=== PATIENT | male | born 1970 | race Hispanic/Latino ===

== ENCOUNTER → 2023-08-12 08:17 | Outpatient (CLI) | payer OTHER, SELFPAY ==
[2023-08-12 09:05] LABS: Add Manual Diff / Slide Review NO; Basophils Absolute Auto 0 /uL (0-100); Basophils Percent Auto 0.4 % (0-2); Eosinophils Absolute Auto 100 /uL (0-450); Eosinophils Percent Auto 1.6 % (2-4); Hematocrit 42.5 % (41-53); Hemoglobin 14.7 g/dL (13.5-17.5); Lymphocytes Absolute Auto 1500 /uL (1100-4500); Lymphocytes Percent Auto 35.7 % (25-40); Mean Corpuscular HGB Conc 34.5 % (30-36); Mean Corpuscular Hemoglobin 31.6 PG (26-34); Mean Corpuscular Volume 91.5 fL (80-100); Monocytes Absolute Auto 200 /uL (0-900); Monocytes Percent Auto 5.8 % (3-14); Neutrophils Absolute Auto 2400 /uL (1500-7000); Neutrophils Percent Auto 56.5 % (50-75); Platelet Count 252 X10^3/uL (150-400); Red Blood Cell Count 4.65 X10^6/uL (4.5-5.9); Red Cell Distribution Width 13.3 % (11.6-14.8); White Blood Cell Count 4.3 X10^3/uL (4.5-11.0)
[2023-08-12 09:16] LABS: Appearance Urine UA CLEAR; Bilirubin Urine UA NEGATIVE (NEGATIVE); Color Urine UA YELLOW; Glucose Urine UA NEGATIVE (Negative); Ketones Urine UA NEGATIVE (NEGATIVE); Leukocyte Esterase Urine UA NEGATIVE (NEGATIVE); Nitrite Urine UA NEGATIVE (Negative); Occult Blood Urine UA NEGATIVE (Negative); Protein Urine UA NEGATIVE (Negative); Urobilinogen Urine UA 0.2 E.U./dL (0.2)
[2023-08-12 09:17] LABS: Hemoglobin A1C% w Est Avg Glu 5.2 % (4.0-6.0)
[2023-08-12 09:23] LABS: Bacteria Urine None Seen; Culture Indicated Urine Cult Not Indicated; RBC Urine None Seen (0-5/HPF); Squamous Epithelial Cell Urine None Seen (0-5/HPF); Urine Volume 10mL (spun); WBC Urine None Seen (0-5/HPF)
[2023-08-12 09:25] LABS: Alanine Aminotransferase 17 IU/L (<50); Albumin 4.1 g/dL (3.5-5.0); Albumin Globulin Ratio 1.4 (1.0-2.8); Alkaline Phosphatase 58 U/L (38-126); Aspartate Aminotransferase 24 IU/L (17-59); BUN Creatinine Ratio 21.4 (6-22); Bilirubin Total 1.3 mg/dL (0.2-1.3); Blood Urea Nitrogen 15 mg/dL (9-20); Calcium 9.3 mg/dL (8.4-10.2); Carbon Dioxide 29 mmol/L (22-32); Chloride 103 mmol/L (98-107); Cholesterol 146 mg/dL (140-199); Estimated Glomerular Filt Rate > 60 mL/min (>60); Glucose 97 mg/dL (70-100); HDL Cholesterol 42 mg/dL (40-60); HEMOLYSIS < 15 (0-50); LDL Cholesterol Calculated 88 mg/dL (<100); Potassium 4.6 mmol/L (3.4-5.1); Sodium 139 mmol/L (137-145); Total Protein 7.1 g/dL (6.3-8.2); Triglycerides 78 mg/dL (35-150)
[2023-08-12 09:51] LABS: Creatinine Urine Random 76.3 mg/dL
[2023-08-12 09:53] LABS: Prostate Specific Antigen Scrn 8.53 ng/mL (0.1-4.0)
[2023-08-12 10:10] LABS: Microalbumin Urine Random < 0.6 mg/dL (0-1.6)
== END ==
PROVIDERS: PCP Family Medicine; Referring Provider Family Medicine; Visit Provider Family Medicine
DX: Z12.5 Encounter for screening for malignant neoplasm of prostate (principal); Z11.59 Encounter for screening for other viral diseases; Z11.4 Encounter for screening for human immunodeficiency virus [HIV]; Z12.11 Encounter for screening for malignant neoplasm of colon; I10 Essential (primary) hypertension; R73.01 Impaired fasting glucose; E78.2 Mixed hyperlipidemia; R10.30 Lower abdominal pain, unspecified
CPT/HCPCS: 36415; 80053; 80061; 81001; 82043; 82570; 83036; 85025; G0103

== ENCOUNTER → 2023-10-05 16:29 | Outpatient (CLI) | payer OTHER, SELFPAY ==
--- NOTE | 2023-10-05 16:32 | DI.MRI.S_ITS ---
PROCEDURE: MR PELVIC PROSTATE PROTOCOL INDICATIONS: Elevated PSA Additional history: PSA 8.53. TECHNIQUE: Coronal HASTE, axial T1 FSE with fat saturation, 3-plane nonbreath-hold T2 FSE. After the administration of contrast, dynamic axial, delayed axial and coronal VIBE or 2-D FLASH with fat saturation through the pelvis. Diffusion weighted imaging and ADC was performed. COMPARISON: None. FINDINGS: Image quality: Diffusion weighted and dynamic contrast enhanced images are diagnostic. Prostate: Gland size is 4.7 x 3.5 x 2.8 cm; ellipsoid gland volume is 24 mL. Numerous BPH nodules. No significant intrinsic T1 hyperintense foci to suggest hemorrhage. No significant areas of ADC hypointensity in the peripheral zone. No suspicious foci of the T2 hypointense signal in the transitional zone. No PI-RADS 4 or 5 observations. Genitourinary system: Bladder wall thickness is normal. Distal ureters are non distended. Bowel and peritoneum: No pathologic free pelvic fluid. Inferior colon and small bowel loops are normal in caliber. Nodes and vessels: No pelvic or inguinal adenopathy by size criteria. Iliac vessels are normal in caliber. Soft tissues: No inguinal hernias. Bones: Marrow demonstrates normal overall signal, without lesions to suggest metastases. IMPRESSION: 1. Prominent prostate gland. Multiple BPH nodules. 2. No PI-RADS 4 or 5 observations. 3. No enlarged lymph nodes. Dictated by: Arthur Fisher M.D. on 10/06/2023 at 8:53 Approved by: Arthur Fisher M.D. on 10/06/2023 at 9:13
== END ==
PROVIDERS: PCP Family Medicine; Referring Provider Urology; Visit Provider Urology
DX: N40.2 Nodular prostate without lower urinary tract symptoms (principal); R97.20 Elevated prostate specific antigen [PSA]
CPT/HCPCS: 72197; A9579

== ENCOUNTER 2023-11-23 11:55 | Day surgery (SDC) | payer OTHER, SELFPAY ==
[2023-11-23 12:58] VITALS: BMI 20.9
[2023-11-23 13:10] VITALS: BP 144/80; PULSE 93; RESP 16; TEMP 36.1; O2SAT 98; BMI 20.9
[2023-11-23] MEDS: LACTATED RINGERS 1,000 ML 42 ML IV (13:16)
--- NOTE | 2023-11-23 13:30 | PM.HP.1 ---
History of Present Illness History of Present Illness Date Patient Seen: 11/23/23 Time Patient Seen: 13:31 Chief complaint: Screening Colonoscopy Narrative: 53-year-old [place]-speaking man here for 1st time screening colonoscopy. No family history of intestinal malignancy. No abdominal concerns today. [facility] Medical History Benign prostatic hyperplasia Lower urinary tract symptoms Headache Elevated PSA Mixed hyperlipidemia IFG (impaired fasting glucose) Benign essential HTN Family History Other Diabetes mellitus Hypertension Social History marital status: number of children: 4 household members: spouse occupational status: employed leisure activities: exercise Smoking Status: Never smoker alcohol intake: former substance use type: does not use caffeine: Yes Type(s) of exercise: aerobic duration: 15-30 minutes/day Meds Home Medications and Allergies Allergies Allergy/AdvReac Type Severity Reaction Status Date / Time No Known Drug Allergies Allergy Verified 11/23/23 12:43 Exam Vital Signs (past 8 hours): - 11/23/23 13:10 Temperature 97 F L Pulse Rate 93 H Respiratory Rate 16 Blood Pressure 144/80 H Pulse Oximetry 98 Oxygen Delivery Method Room Air Oxygen Delivery Method Room Air Narrative Exam Narrative: General adult man alert oriented no acute distress Chest nonlabored respiration Extremities warm well perfused Assessment & Plan Assessment & Plan narrative: The patient requires colorectal screening and colonoscopy is recommended. Technical details were discussed. Risks, benefits, alternatives explained. Risks including but not limited to myocardial infarction, aspiration, bleeding, pain, missed lesion, incomplete examination, need for further radiographic studies, intestinal injury, and need for major abdominal surgery were discussed. All questions were answered to their satisfaction, and they are in agreement with this plan.
[2023-11-23 14:02] VITALS: BP 111/73; PULSE 85; RESP 18; TEMP 36.9; O2SAT 100
[2023-11-23 14:07] VITALS: BP 103/68; PULSE 82; RESP 16; O2SAT 100
--- NOTE | 2023-11-23 14:07 | P.OP.COLON_ITS ---
Operative Date/Time/Diagnoses Date of procedure: 11/23/23 Time of procedure: 14:07 Pre-op diagnosis: Colorectal screening Procedure & Clinicians Study performed: Screening colonoscopy Same procedure as scheduled: Yes Indications: Colorectal screening Surgeon: Evan Andrea Procedure Notes Procedure in detail: The history and physical was performed/updated and the patient is ASA class is 2. The procedure was discussed in detail with the patient. Potential risks co mplications including infection, bleeding, missed diagnosis, perforation, need for surgery, and were explained. Their questions were answered and informed consent was obtained. Patient was brought to the procedure room and placed standard monitoring equipment. The patient's vital signs were monitored continuously throughout the entire procedure. Prior to starting time-out was performed. The patient was placed in the left lateral recumbent position. Procedural sedation was administered by anesthesia. Examination began with a thorough inspection of the perianal area there was no evidence of fissures, fistulae, external hemorrhoids or cutaneous malignancy. The colonoscopy scope was then placed into the anal canal and was advanced to the cecum, which was identified by the ileocecal valve, the appendiceal orifice and the confluence of the taenia. The scope was then slowly withdrawn examining colon thoroughly in all directions, irrigating it of any residual stool. The scope was retroflexed within the rectum The patient tolerated the procedure well. They will be discharged once criteria are met. The prep was of good/excellent quality. The withdrawl time was 7 minutes. FINDINGS * Unremarkable colonoscopy. No masses polyps or inflammation. Normal healthy colonic mucosa. Specimen(s): none sent Impression: Normal colonoscopy Post-procedure Recommendations: Colonoscopy in 10 years Disposition: same day surgery
[2023-11-23 14:12] VITALS: BP 114/75; PULSE 78; RESP 16; O2SAT 100
[2023-11-23 14:16] VITALS: BP 120/74; PULSE 76; RESP 18; O2SAT 100
== END 2023-11-23 14:35 | disposition home or self-care (01) ==
PROVIDERS: PCP Family Medicine; Referring Provider Surgery; Visit Provider Surgery
PROC: 0DJD8ZZ Inspection of Lower Intestinal Tract, Via Natural or Artificial Opening Endoscopic (ICD-10-PCS; CPT 45378; principal; 2023-11-23 13:30)
DX: Z12.11 Encounter for screening for malignant neoplasm of colon (principal)
CPT/HCPCS: 45378; J2704

== ENCOUNTER → 2024-09-18 10:06 | Outpatient (CLI) | payer BC, SELFPAY ==
[2024-09-18 10:35] LABS: Hemoglobin A1C% w Est Avg Glu 5.3 % (4.0-6.0)
[2024-09-18 10:59] LABS: Alanine Aminotransferase 28 IU/L (<50); Albumin 4.3 g/dL (3.5-5.0); Albumin Globulin Ratio 1.5 (1.0-2.8); Alkaline Phosphatase 74 U/L (38-126); Aspartate Aminotransferase 31 IU/L (17-59); BUN Creatinine Ratio 22.2 (6-22); Bilirubin Total 0.7 mg/dL (0.2-1.3); Blood Urea Nitrogen 16 mg/dL (9-20); Calcium 9.1 mg/dL (8.4-10.2); Carbon Dioxide 32 mmol/L (22-32); Chloride 102 mmol/L (98-107); Cholesterol 187 mg/dL (140-199); Estimated Glomerular Filt Rate > 60 mL/min (>60); Globulin 2.8 g/dL (1.7-4.1); Glucose 100 mg/dL (70-100); HDL Cholesterol 41 mg/dL (40-60); HEMOLYSIS < 15 (0-50); LDL Cholesterol Calculated 124 mg/dL (<100); Potassium 4.4 mmol/L (3.4-5.1); Sodium 138 mmol/L (137-145); Total Protein 7.1 g/dL (6.3-8.2); Triglycerides 112 mg/dL (35-150)
[2024-09-19 18:27] LABS: HIV 1 & 2 Ab/Ag 4th Gen Combo NEGATIVE (NEGATIVE); Hep C Virus Ab w/Reflex Quant NEGATIVE s/c (NEGATIVE)
== END ==
PROVIDERS: PCP Family Medicine; Referring Provider Family Medicine; Visit Provider Family Medicine
DX: R73.01 Impaired fasting glucose (principal); E78.2 Mixed hyperlipidemia; I10 Essential (primary) hypertension; B02.9 Zoster without complications; Z11.59 Encounter for screening for other viral diseases; Z11.4 Encounter for screening for human immunodeficiency virus [HIV]
CPT/HCPCS: 36415; 80053; 80061; 83036; 86803; 87389

== ENCOUNTER → 2024-12-19 08:50 | Outpatient (CLI) | payer BC, SELFPAY | LOC: LAB 08:52 | PROVIDERS: PCP Family Medicine; Referring Provider Urology; Visit Provider Urology | DX: R97.20 Elevated prostate specific antigen [PSA] (principal); N40.1 Benign prostatic hyperplasia with lower urinary tract symptoms; R35.0 Frequency of micturition; R39.9 Unspecified symptoms and signs involving the genitourinary system | CPT/HCPCS: 36415; 84153; 84154 ==

== ENCOUNTER → 2025-03-06 17:01 | Outpatient (CLI) | payer BC, SELFPAY ==
[2025-03-09 14:09] LABS: Cadmium, Blood <0.5 ug/L (0.0-1.2); Lead, Blood < 1.0 ug/dL (0.0-3.4); Mercury, Blood 1.2 ug/L (0.0-14.9)
== END ==
PROVIDERS: PCP Family Medicine; Referring Provider Family Medicine; Visit Provider Family Medicine
DX: Z77.120 Contact with and (suspected) exposure to mold (toxic) (principal); Z77.018 Contact with and (suspected) exposure to other hazardous metals
CPT/HCPCS: 82175; 82300; 83655; 83825

== ENCOUNTER → 2025-04-05 07:17 | Outpatient (CLI) | payer BC, SELFPAY ==
[2025-04-05 09:17] LABS: Prostate Specific Antigen 11.8 ng/mL (0.10-4.00)
== END ==
PROVIDERS: PCP Family Medicine; Referring Provider Urology; Visit Provider Urology
DX: R97.20 Elevated prostate specific antigen [PSA] (principal)
CPT/HCPCS: 36415; 84153

== ENCOUNTER → 2025-04-16 14:32 | Outpatient (CLI) | payer BC, SELFPAY | PROVIDERS: PCP Family Medicine; Visit Provider Urology | DX: R39.9 Unspecified symptoms and signs involving the genitourinary system (principal) | CPT/HCPCS: 87086 ==